=== PATIENT | female | born 1960 | race Caucasian/White ===

== ENCOUNTER → 2016-06-13 | Outpatient (REF) | payer OTHER ==
[~2016-06-13] MED LIST: TRAZ50TA OR; ZOLO50TA OR
[2016-06-13 17:29] LABS: BASO % 0.6 % (0.0-1.0); EOS # 0.2 K/mm3 (0.0-0.50); EOS % 2.9 % (0.0-3.0); LARGE UNSTAINED CELL # 0.3 K/mm3 (0.0-0.4); LARGE UNSTAINED CELL % 2.9 % (0.0-4.0); LYMPH # 2.6 K/mm3 (1.5-4.5); LYMPH % 29.7 % (24.0-44.0); MEAN CORPUSCULAR HEMOGLOBIN 28.9 pg (27.0-33.0); MEAN CORPUSCULAR HGB CONC 33.6 g/dl (32.0-36.5); MEAN CORPUSCULAR VOLUME 86.1 fl (80.0-96.0); MONO # 0.5 K/mm3 (0.0-0.8); MONO % 5.6 % (0.0-5.0); NEUTROPHILS % 58.3 % (36.0-66.0); PLATELET COUNT, AUTOMATED 279 k/mm3 (150-450); RED CELL DISTRIBUTION WIDTH 12.8 % (11.5-14.5); WHITE BLOOD COUNT 8.6 K/mm3 (4.0-10.0)
[2016-06-13 17:31] LABS: ALBUMIN 3.8 GM/DL (3.2-5.2); ALBUMIN/GLOBULIN RATIO 1.03 (1.00-1.93); ALKALINE PHOSPHATASE 108 U/L (45-117); ALT/SGPT 22 U/L (12-78); ANION GAP 10 MEQ/L (8-16); AST/SGOT 23 U/L (15-37); BILIRUBIN,TOTAL 0.4 MG/DL (0.2-1.0); BLOOD UREA NITROGEN 16 MG/DL (7-18); CALCIUM LEVEL 8.8 MG/DL (8.5-10.1); CARBON DIOXIDE LEVEL 28 MEQ/L (21-32); CHLORIDE LEVEL 104 MEQ/L (98-107); CHOLESTEROL LEVEL 195 MG/DL (<200); CREATININE FOR GFR 0.75 MG/DL (0.55-1.02); FERRITIN 47 NG/ML (8-252); GLOMERULAR FILTRATION RATE > 60.0 (>51); GLUCOSE, FASTING 94 MG/DL (70-105); MAGNESIUM LEVEL 1.7 MG/DL (1.8-2.4); PERCENT SATURATION 16.4 % (13.2-37.4); POTASSIUM SERUM 4.4 MEQ/L (3.5-5.1); SODIUM LEVEL 142 MEQ/L (136-145); TOTAL IRON BINDING CAPACITY 342 UG/DL (250-450); TOTAL PROTEIN 7.5 GM/DL (6.4-8.2); TRIGLYCERIDES LEVEL 141 MG/DL (<150)
[2016-06-13 17:35] LABS: FOLATE 18.5 NG/ML (>5.4); VITAMIN B12 LEVEL 833 PG/ML (247-911)
== END ==
LOC: M SFHCCLAY 09:54
PROVIDERS: ATTEND Nurse Practitioner Family
DX: E11.9 Type 2 diabetes mellitus without complications (principal); E78.4 Other hyperlipidemia; E55.9 Vitamin D deficiency, unspecified; Z98.84 Bariatric surgery status

== ENCOUNTER → 2016-10-04 | Outpatient (REF) | payer OTHER ==
[2016-10-04 18:22] LABS: MAGNESIUM LEVEL 1.9 MG/DL (1.8-2.4)
== END ==
LOC: M SFHCCLAY 09:31
PROVIDERS: ATTEND Nurse Practitioner Family
DX: E11.9 Type 2 diabetes mellitus without complications (principal); E78.4 Other hyperlipidemia; Z98.84 Bariatric surgery status; E55.9 Vitamin D deficiency, unspecified

== ENCOUNTER → 2017-02-27 | Outpatient (REF) | payer OTHER | LOC: M SFHCCLAY 09:50 | PROVIDERS: ATTEND Nurse Practitioner Family | DX: E11.9 Type 2 diabetes mellitus without complications (principal); E78.4 Other hyperlipidemia; Z98.84 Bariatric surgery status; E55.9 Vitamin D deficiency, unspecified ==

== ENCOUNTER → 2017-05-08 | Outpatient (REF) | payer OTHER | LOC: M SFHCCLAY 08:59 | PROVIDERS: ATTEND Nurse Practitioner Family | DX: E78.4 Other hyperlipidemia (principal); E11.9 Type 2 diabetes mellitus without complications; E55.9 Vitamin D deficiency, unspecified ==

== ENCOUNTER → 2017-09-04 | Outpatient (REF) | payer OTHER ==
[2017-09-04 18:22] LABS: ALBUMIN/GLOBULIN RATIO 1.08 (1.00-1.93); ALKALINE PHOSPHATASE 96 U/L (45-117); ALT/SGPT 25 U/L (12-78); ANION GAP 7 MEQ/L (8-16); AST/SGOT 27 U/L (7-37); BILIRUBIN,TOTAL 0.3 MG/DL (0.2-1.0); BLOOD UREA NITROGEN 16 MG/DL (7-18); CALCIUM LEVEL 9.4 MG/DL (8.5-10.1); CARBON DIOXIDE LEVEL 28 MEQ/L (21-32); CHLORIDE LEVEL 108 MEQ/L (98-107); CHOLESTEROL LEVEL 215 MG/DL (<200); CHOLESTEROL RISK RATIO 3.706 (<5); CREATININE FOR GFR 0.71 MG/DL (0.55-1.30); ESTIMATED AVERAGE GLUCOSE 151 MG/DL (60-110); FERRITIN 74 NG/ML (8-252); GLOMERULAR FILTRATION RATE > 60.0 (>51); GLUCOSE, FASTING 112 MG/DL (70-100); HDL CHOLESTEROL 58 MG/DL (>40); HEMOGLOBIN A1c 6.9 %; IRON (FE) 77 UG/DL (50-170); LDL CHOLESTEROL 114.6 MG/DL (<100); MAGNESIUM LEVEL 1.8 MG/DL (1.8-2.4); NON-HDL-C 157 MG/DL; PERCENT SATURATION 23.5 % (13.2-45.0); POTASSIUM SERUM 4.6 MEQ/L (3.5-5.1); SODIUM LEVEL 143 MEQ/L (136-145); TOTAL 25(OH) VITAMIN D 53.6 NG/ML (30.0-100.0); TOTAL IRON BINDING CAPACITY 328 UG/DL (250-450); TOTAL PROTEIN 7.7 GM/DL (6.4-8.2); TRIGLYCERIDES LEVEL 212 MG/DL (<150)
[2017-09-04 18:23] LABS: FOLATE 17.9 NG/ML (>5.4); VITAMIN B12 LEVEL 760 PG/ML (247-911)
[2017-09-04 18:38] LABS: HEMATOCRIT 44.2 % (36.0-47.0); HEMOGLOBIN 14.4 g/dl (12.0-15.5); MEAN CORPUSCULAR HEMOGLOBIN 28.4 pg (27.0-33.0); MEAN CORPUSCULAR HGB CONC 32.6 g/dl (32.0-36.5); MEAN CORPUSCULAR VOLUME 87.2 fl (80.0-96.0); PLATELET COUNT, AUTOMATED 285 10^3/uL (150-450); RED BLOOD COUNT 5.07 10^6/uL (4.00-5.40); RED CELL DISTRIBUTION WIDTH 13.4 % (11.5-14.5); WHITE BLOOD COUNT 9.4 10^3/uL (4.0-10.0)
[2017-09-04 19:37] LABS: MALB URINE SIEMENS 8.5 MG/L; MAU/CREAT RATIO 3.7 MCG/MG (0.0-30.0); TOTAL PROTEIN,RANDOM URINE 18.5 MG/DL (0.0-12.0)
== END ==
LOC: M SFHCCLAY 10:44
DX: Z98.84 Bariatric surgery status (principal); E11.9 Type 2 diabetes mellitus without complications; E78.4 Other hyperlipidemia
CPT/HCPCS: 82746

== ENCOUNTER → 2018-04-09 | Outpatient (REF) | payer OTHER ==
[2018-04-09 13:56] LABS: CHOLESTEROL LEVEL 216 MG/DL (<200); CHOLESTEROL RISK RATIO 3.927 (<5); HDL CHOLESTEROL 55 MG/DL (>40); LDL CHOLESTEROL 135 MG/DL (<100); NON-HDL-C 161 MG/DL; TRIGLYCERIDES LEVEL 131 MG/DL (<150)
[2018-04-09 14:08] LABS: TOTAL 25(OH) VITAMIN D 59.8 NG/ML (30.0-100.0)
[2018-04-09 14:23] LABS: ESTIMATED AVERAGE GLUCOSE 157 MG/DL (60-110); HEMOGLOBIN A1c 7.1 %
[2018-04-09 14:43] LABS: MALB URINE SIEMENS 28.9 MG/L; MAU/CREAT RATIO 11.5 MCG/MG (0.0-30.0)
== END ==
LOC: M SFHCCLAY 07:42
DX: E11.9 Type 2 diabetes mellitus without complications (principal); E78.49 Other hyperlipidemia; E55.9 Vitamin D deficiency, unspecified

== ENCOUNTER → 2018-10-04 | Outpatient (REF) | payer BC ==
[2018-10-04 12:37] LABS: BASO # 0.1 10^3/uL (0.0-0.2); BASO % 0.7 % (0.0-1.0); EOS # 0.5 10^3/uL (0.0-0.50); EOS % 4.6 % (0.0-3.0); HEMATOCRIT 43.8 % (36.0-47.0); HEMOGLOBIN 14.3 g/dl (12.0-15.5); LYMPH # 2.9 10^3/uL (1.5-4.5); LYMPH % 28.1 % (24.0-44.0); MEAN CORPUSCULAR HEMOGLOBIN 28.2 pg (27.0-33.0); MEAN CORPUSCULAR HGB CONC 32.6 g/dl (32.0-36.5); MEAN CORPUSCULAR VOLUME 86.4 fl (80.0-96.0); MONO # 0.6 10^3/uL (0.0-0.8); MONO % 5.8 % (0.0-5.0); NEUTROPHILS # 6.1 10^3/uL (1.8-7.7); NEUTROPHILS % 60.3 % (36.0-66.0); PLATELET COUNT, AUTOMATED 284 10^3/uL (150-450); RED BLOOD COUNT 5.07 10^6/uL (4.00-5.40); WHITE BLOOD COUNT 10.1 10^3/uL (4.0-10.0)
[2018-10-04 12:57] LABS: HEMOGLOBIN A1c 7.3 %
[2018-10-04 13:03] LABS: MALB URINE SIEMENS 17.8 MG/L; MAU/CREAT RATIO 7.3 MCG/MG (0.0-30.0)
[2018-10-04 13:19] LABS: ALBUMIN 3.6 GM/DL (3.2-5.2); ALT/SGPT 23 U/L (12-78); BILIRUBIN,TOTAL 0.4 MG/DL (0.2-1.0); BLOOD UREA NITROGEN 14 MG/DL (7-18); CALCIUM LEVEL 8.5 MG/DL (8.5-10.1); CARBON DIOXIDE LEVEL 25 MEQ/L (21-32); CHLORIDE LEVEL 108 MEQ/L (98-107); CHOLESTEROL LEVEL 203 MG/DL (<200); CREATININE FOR GFR 0.63 MG/DL (0.55-1.30); FERRITIN 79 NG/ML (8-252); FOLATE 14.2 NG/ML (>5.4); GLOMERULAR FILTRATION RATE > 60.0 (>51); GLUCOSE, FASTING 110 MG/DL (70-100); HDL CHOLESTEROL 53 MG/DL (>40); IRON (FE) 64 UG/DL (50-170); LDL CHOLESTEROL 130 MG/DL (<100); MAGNESIUM LEVEL 1.9 MG/DL (1.8-2.4); NON-HDL-C 150 MG/DL; PERCENT SATURATION 19.6 % (13.2-45.0); POTASSIUM SERUM 4.9 MEQ/L (3.5-5.1); SODIUM LEVEL 139 MEQ/L (136-145); TOTAL 25(OH) VITAMIN D 76.1 NG/ML (30.0-100.0); TOTAL IRON BINDING CAPACITY 326 UG/DL (250-450); TOTAL PROTEIN 7.5 GM/DL (6.4-8.2); TRIGLYCERIDES LEVEL 99 MG/DL (<150); VITAMIN B12 LEVEL 1444 PG/ML (247-911)
== END ==
LOC: M SFHCCLAY 09:06
PROVIDERS: ATTEND Nurse Practitioner Family
DX: Z98.84 Bariatric surgery status (principal); E78.49 Other hyperlipidemia; E11.9 Type 2 diabetes mellitus without complications

== ENCOUNTER → 2019-01-31 | Outpatient (CLI) | payer BC ==
--- NOTE | 2019-01-31 09:59 | REP ---
MRI of the thoracic spine without contrast Indication: Mid back pain on the right side, strain and neck muscle. Comparison: None Technique: MRI of the thoracic spine was performed utilizing sagittal T1, T2 and STIR imaging and axial T1 and T2-weighted imaging. No intravenous contrast was administered. Findings: There is patient motion artifact sac which degrades image quality and decreases the sensitivity for detection of small lesions. Within this limitation, there is no gross signal abnormality within the visualized spinal cord. There is normal alignment of the thoracic spine. There is levoscoliotic curvature of the thoracolumbar spine. There are multilevel disc bulges within the mid to lower thoracic spine. At T7-T8, there is a small left paracentral disc protrusion. At T8-T9, there is a small central/right paracentral disc protrusion. At T11-T12, there is a small left paracentral disc protrusion. There is no significant spinal canal stenosis. Vertebral body heights and intervertebral disc spaces are maintained. Note is made degenerative edema at the T12-L1 endplates. There is endplate irregularity along the superior endplate of T12 anteriorly. There is no suspicious focal marrow signal abnormality. There is a subcentimeter T2 hyperintensity within the left kidney which could represent a cyst. The posterior paraspinal soft tissues are within normal limits. Impression: Multilevel thoracic spondylosis with multilevel small disc protrusions within the mid to lower thoracic spine. No significant spinal canal stenosis. Electronically Signed by Shanel Ibarra MD 01/31/2019 09:51 A
--- NOTE | 2019-01-31 10:14 | REP ---
MRI of the cervical spine without contrast Indication: Mid back pain on the right side, strain of neck muscle. Comparison: None Technique: MRI of the cervical spine was performed utilizing sagittal T1, STIR and T2-weighted imaging as well as axial T1 and T2-weighted imaging. No intravenous contrast was administered. Findings: There is loss of cervical lordosis with mild kyphosis. There are multilevel degenerative changes, most notably at C4-C7 with loss of disc height, disc desiccation. There is degenerative endplate marrow edema at C4-C5. The visualized spinal cord is normal in signal intensity. The paraspinal soft tissues are within normal limits. Level specific observations: C2-C3: No significant spinal canal stenosis or neural foraminal narrowing. C3-C4: Diffuse disc bulge. Left uncovertebral joint hypertrophy. Mild left neural foraminal narrowing. C4-C5: Disc osteophyte complex. Bilateral uncovertebral joint hypertrophy, greater on the left. Moderate narrowing of the spinal canal. Moderate bilateral neural foraminal narrowing. C5-C6: Disc osteophyte complex. Bilateral uncovertebral joint hypertrophy, greater on the left. Moderate narrowing of the spinal canal. Moderate bilateral neural foraminal narrowing, greater on the left. C6-C7: Disc osteophyte complex. Bilateral uncovertebral joint hypertrophy, greater on the left. Mild spinal canal narrowing. Moderate bilateral neural foraminal narrowing, greater on the left. C7-T1: No significant spinal canal stenosis or neural foraminal narrowing. Impression: Loss of cervical lordosis. Multilevel cervical spondylosis, most notably at C4-C5 and C5-C6 with moderate narrowing of the spinal canal and neural foramina. Mild narrowing of the spinal canal and moderate neural foraminal narrowing at C6-C7. Electronically Signed by Shanel Ibarra MD 01/31/2019 10:05 A
== END ==
LOC: M RAD 06:32
PROVIDERS: ATTEND Nurse Practitioner Family
DX: M54.5 Low back pain (principal); S16.1XXA Strain of muscle, fascia and tendon at neck level, initial encounter

== ENCOUNTER → 2019-04-04 | Outpatient (REF) | payer BC ==
[2019-04-04 12:44] LABS: CHOLESTEROL RISK RATIO 3.812 (<5); FREE THYROXINE INDEX 2.9 % (1.3-4.8); THYROID STIMULATING HORMONE 2.93 uIU/ML (0.358-3.740); THYROXINE (T4) 8.9 UG/DL (4.5-12.0)
[2019-04-04 14:33] LABS: HEMOGLOBIN A1c 7.1 %
== END ==
LOC: M SFHCCLAY 07:15
PROVIDERS: ATTEND Nurse Practitioner Family
DX: E11.9 Type 2 diabetes mellitus without complications (principal); I10 Essential (primary) hypertension; R53.83 Other fatigue; Z98.84 Bariatric surgery status

== ENCOUNTER → 2019-07-01 | Outpatient (REF) | payer BC ==
[2019-07-01 19:20] LABS: HEMOGLOBIN A1c 7.2 %
[2019-07-01 19:23] LABS: CHOLESTEROL RISK RATIO 3.907 (<5); TOTAL 25(OH) VITAMIN D 60.3 NG/ML (30.0-100.0)
[2019-07-01 19:42] LABS: MALB URINE SIEMENS 10.2 MG/L; MAU/CREAT RATIO 6.5 MCG/MG (0.0-30.0)
== END ==
LOC: M SFHCCLAY 09:40
PROVIDERS: ATTEND Nurse Practitioner Family
DX: E11.9 Type 2 diabetes mellitus without complications (principal); E78.49 Other hyperlipidemia; E55.9 Vitamin D deficiency, unspecified

== ENCOUNTER → 2019-10-01 | Outpatient (REF) | payer BC ==
[2019-10-01 11:21] LABS: BASO # 0.1 10^3/uL (0.0-0.2); BASO % 0.7 % (0.0-1.0); EOS # 0.4 10^3/uL (0.0-0.5); HEMATOCRIT 41.1 % (36.0-47.0); HEMOGLOBIN 13.3 g/dl (12.0-15.5); MEAN CORPUSCULAR HEMOGLOBIN 28.5 pg (27.0-33.0); MEAN CORPUSCULAR HGB CONC 32.4 g/dl (32.0-36.5); MEAN CORPUSCULAR VOLUME 88.2 fl (80.0-96.0); MONO # 0.7 10^3/uL (0.0-0.8); MONO % 7.2 % (0.0-5.0); NEUTROPHILS # 4.9 10^3/uL (1.5-8.5); NEUTROPHILS % 54.7 % (36.0-66.0); PLATELET COUNT, AUTOMATED 258 10^3/uL (150-450); RED BLOOD COUNT 4.66 10^6/uL (4.00-5.40)
[2019-10-01 11:29] LABS: ALBUMIN 3.6 GM/DL (3.2-5.2); ALT/SGPT 21 U/L (12-78); BILIRUBIN,TOTAL 0.3 MG/DL (0.2-1.0); BLOOD UREA NITROGEN 16 MG/DL (7-18); CALCIUM LEVEL 8.9 MG/DL (8.5-10.1); CARBON DIOXIDE LEVEL 24 MEQ/L (21-32); CHLORIDE LEVEL 108 MEQ/L (98-107); CHOLESTEROL LEVEL 208 MG/DL (<200); CHOLESTEROL RISK RATIO 3.924 (<5); CREATININE FOR GFR 0.83 MG/DL (0.55-1.30); FERRITIN 32 NG/ML (8-252); GLOMERULAR FILTRATION RATE > 60.0 (>51); GLUCOSE, FASTING 125 MG/DL (70-100); HDL CHOLESTEROL 53 MG/DL (>40); IRON (FE) 74 UG/DL (50-170); LDL CHOLESTEROL 131 MG/DL (<100); NON-HDL-C 155 MG/DL; PERCENT SATURATION 21.1 % (13.2-45.0); POTASSIUM SERUM 4.4 MEQ/L (3.5-5.1); SODIUM LEVEL 140 MEQ/L (136-145); TOTAL IRON BINDING CAPACITY 351 UG/DL (250-450); TOTAL PROTEIN 7.2 GM/DL (6.4-8.2); TRIGLYCERIDES LEVEL 120 MG/DL (<150)
[2019-10-01 11:36] LABS: FOLATE 22.6 NG/ML (>5.4); VITAMIN B12 LEVEL 1888 PG/ML (247-911)
[2019-10-01 11:50] LABS: HEMOGLOBIN A1c 7.9 %
[2019-10-01 12:16] LABS: MALB URINE SIEMENS 5.8 MG/L; MAU/CREAT RATIO 3.3 MCG/MG (0.0-30.0)
== END ==
LOC: M SFHCCLAY 08:41
PROVIDERS: ATTEND Nurse Practitioner Family
DX: E11.9 Type 2 diabetes mellitus without complications (principal); E78.5 Hyperlipidemia, unspecified; Z98.84 Bariatric surgery status

== ENCOUNTER → 2020-02-13 | Outpatient (CLI) | payer BC ==
--- NOTE | 2020-02-27 20:07 | REP ---
RIGHT HIP SERIES: CLINICAL: Right hip pain. TECHNIQUE: Neutral and frog lateral views of the right hip. FINDINGS: Advanced osteoarthritic degenerative changes are appreciated including increased sclerosis along the acetabulum with marginal osteophytosis and joint space narrowing. Osteophyte formation along the femoral head is also identified. There is no evidence for acute fracture or dislocation. IMPRESSION: Early advanced osteoarthritic degenerative changes of the right hip. MTDD
== END ==
LOC: M CLY 11:21
PROVIDERS: ATTEND Physician Assistant
DX: M54.5 Low back pain (principal); M16.11 Unilateral primary osteoarthritis, right hip

== ENCOUNTER → 2020-02-14 | Outpatient (REF) | payer BC ==
[2020-02-14 14:35] LABS: HEMATOCRIT 40.9 % (36.0-47.0); MEAN CORPUSCULAR HGB CONC 31.8 g/dl (32.0-36.5); PLATELET COUNT, AUTOMATED 259 10^3/uL (150-450); RED BLOOD COUNT 4.65 10^6/uL (4.00-5.40); WHITE BLOOD COUNT 8.2 10^3/uL (4.0-10.0)
[2020-02-14 15:13] LABS: HEMOGLOBIN A1c 7.2 %
[2020-02-14 15:41] LABS: ALBUMIN 3.9 GM/DL (3.2-5.2); ALT/SGPT 21 U/L (12-78); BILIRUBIN,TOTAL 0.3 MG/DL (0.2-1.0); BLOOD UREA NITROGEN 14 MG/DL (7-18); CALCIUM LEVEL 8.1 MG/DL (8.5-10.1); CARBON DIOXIDE LEVEL 27 MEQ/L (21-32); CHLORIDE LEVEL 107 MEQ/L (98-107); CHOLESTEROL LEVEL 222 MG/DL (<200); CHOLESTEROL RISK RATIO 3.762 (<5); GLOMERULAR FILTRATION RATE > 60.0 (>51); GLUCOSE, FASTING 140 MG/DL (70-100); HDL CHOLESTEROL 59 MG/DL (>40); LDL CHOLESTEROL 136 MG/DL (<100); NON-HDL-C 163 MG/DL; POTASSIUM SERUM 4.8 MEQ/L (3.5-5.1); SODIUM LEVEL 139 MEQ/L (136-145); TOTAL 25(OH) VITAMIN D 69.7 NG/ML (30.0-100.0); TOTAL PROTEIN 7.1 GM/DL (6.4-8.2); TRIGLYCERIDES LEVEL 137 MG/DL (<150)
== END ==
LOC: M LABDRAWC 11:54 → M SFHCCLAY 11:54
PROVIDERS: ATTEND Nurse Practitioner Family
DX: E11.9 Type 2 diabetes mellitus without complications (principal); I10 Essential (primary) hypertension; E78.5 Hyperlipidemia, unspecified; E55.9 Vitamin D deficiency, unspecified; F32.9 Major depressive disorder, single episode, unspecified

== ENCOUNTER → 2020-04-07 | Outpatient (REF) | payer BC ==
[2020-04-08 21:06] LABS: ANA (HEP2) Negative (.); Lyme Disease IgG/IgM Antibodie <0.91 ISR (0.00-0.90); Lyme Disease IgM Ab Quantitati <0.80 index (0.00-0.79)
== END ==
LOC: M SFHCCLAY 08:29
PROVIDERS: ATTEND Nurse Practitioner Family
DX: M54.9 Dorsalgia, unspecified (principal)

== ENCOUNTER → 2020-06-08 | Outpatient (REF) | payer BC ==
[2020-06-08 12:15] LABS: CHOLESTEROL RISK RATIO 3.736 (<5); TOTAL 25(OH) VITAMIN D 70.7 NG/ML (30.0-100.0)
== END ==
LOC: M SFHCCLAY 08:25
PROVIDERS: ATTEND Nurse Practitioner Family
DX: E11.9 Type 2 diabetes mellitus without complications (principal); E78.5 Hyperlipidemia, unspecified; E55.9 Vitamin D deficiency, unspecified

== ENCOUNTER → 2020-09-08 | Outpatient (REF) | payer BC ==
[2020-09-08 11:20] LABS: PLATELET COUNT, AUTOMATED 265 10^3/uL (150-450)
[2020-09-08 11:32] LABS: INR 0.93; PARTIAL THROMBOPLASTIN TIME 27.6 SECONDS (24.2-38.5); PROTHROMBIN TIME 12.6 SECONDS (12.5-14.3)
== END ==
LOC: M LABDRAWC 11:02
PROVIDERS: ATTEND Physician Assistant
DX: M47.817 Spondylosis without myelopathy or radiculopathy, lumbosacral region (principal)

== ENCOUNTER → 2020-11-11 | Outpatient (CLI) | payer BC ==
--- NOTE | 2020-11-12 11:05 | REP ---
INDICATION: RT HIP OA ? TROCHANTERIC BURSITIS injury September 2019 in December 2019, pain COMPARISON: None. TECHNIQUE: Coronal T1, STIR through the pelvis, axial, coronal, sagittal T2 fat sat right hip. FINDINGS: There is moderate marrow edema in the superior aspect of the right femoral head, as well as in the adjacent right acetabulum. There is fairly severe chondromalacia diffusely at the hip joint. The labrum is diffusely torn. There is a small joint effusion. There is mild ill-defined high signal in the soft tissue structures adjacent to the greater trochanters bilaterally compatible with mild greater trochanteric tendonobursitis. Other surrounding soft tissue structures are unremarkable. The visualized intrapelvic structures are unremarkable. IMPRESSION: Severe arthritic changes right hip with subchondral marrow edema on both sides of the joint. Small joint effusion. Diffuse labral tear. There are findings compatible with mild greater trochanteric tendonobursitis. <Electronically signed by Catalino Tejeda > 11/12/20 [id number]
== END ==
LOC: M RAD 17:44
PROVIDERS: ATTEND Physical Medicine & Rehabilitation
DX: M16.11 Unilateral primary osteoarthritis, right hip (principal)

== ENCOUNTER → 2020-12-03 | Outpatient (REF) | payer BC ==
[2020-12-03 12:18] LABS: BASO # 0.1 10^3/uL (0.0-0.2); BASO % 0.7 % (0.0-1.0); EOS # 0.4 10^3/uL (0.0-0.5); EOS % 4.6 % (0.0-3.0); HEMATOCRIT 40.1 % (36.0-47.0); HEMOGLOBIN 12.7 g/dl (12.0-15.5); LYMPH # 2.3 10^3/uL (1.5-5.0); LYMPH % 27.4 % (24.0-44.0); MEAN CORPUSCULAR HEMOGLOBIN 27.8 pg (27.0-33.0); MEAN CORPUSCULAR HGB CONC 31.7 g/dl (32.0-36.5); MEAN CORPUSCULAR VOLUME 87.7 fl (80.0-96.0); MONO # 0.7 10^3/uL (0.0-0.8); MONO % 7.8 % (2.0-8.0); NEUTROPHILS # 4.9 10^3/uL (1.5-8.5); PLATELET COUNT, AUTOMATED 266 10^3/uL (150-450); RED BLOOD COUNT 4.57 10^6/uL (4.00-5.40); WHITE BLOOD COUNT 8.3 10^3/uL (4.0-10.0)
[2020-12-03 12:47] LABS: HEMOGLOBIN A1c 7.4 %
[2020-12-03 12:49] LABS: CREATININE, URINE 85.9 MG/DL; MALB URINE SIEMENS < 5.0 MG/L; MAU/CREAT RATIO 5.8 MCG/MG (0.0-30.0)
[2020-12-03 12:50] LABS: ALBUMIN 3.6 GM/DL (3.2-5.2); ALT/SGPT 19 U/L (12-78); BILIRUBIN,TOTAL 0.4 MG/DL (0.2-1.0); BLOOD UREA NITROGEN 14 MG/DL (7-18); CALCIUM LEVEL 8.7 MG/DL (8.5-10.1); CARBON DIOXIDE LEVEL 28 MEQ/L (21-32); CHLORIDE LEVEL 105 MEQ/L (98-107); CHOLESTEROL LEVEL 182 MG/DL (<200); CREATININE FOR GFR 0.69 MG/DL (0.55-1.30); FREE T4 1.11 NG/DL (0.76-1.46); GLOMERULAR FILTRATION RATE > 60.0 (>51); GLUCOSE, FASTING 145 MG/DL (70-100); HDL CHOLESTEROL 56 MG/DL (>40); IRON (FE) 77 UG/DL (50-170); LDL CHOLESTEROL 101 MG/DL (<100); NON-HDL-C 126 MG/DL; PERCENT SATURATION 22.3 % (13.2-45.0); POTASSIUM SERUM 4.7 MEQ/L (3.5-5.1); SODIUM LEVEL 138 MEQ/L (136-145); TOTAL 25(OH) VITAMIN D 79.5 NG/ML (30.0-100.0); TOTAL IRON BINDING CAPACITY 346 UG/DL (250-450); TOTAL PROTEIN 6.9 GM/DL (6.4-8.2); TRIGLYCERIDES LEVEL 126 MG/DL (<150); VITAMIN B12 LEVEL 534 PG/ML (247-911)
== END ==
LOC: M SFHCCLAY 08:08
PROVIDERS: ATTEND Nurse Practitioner Family
DX: E11.8 Type 2 diabetes mellitus with unspecified complications (principal); I10 Essential (primary) hypertension; E78.5 Hyperlipidemia, unspecified; Z98.84 Bariatric surgery status; F32.9 Major depressive disorder, single episode, unspecified; Z78.0 Asymptomatic menopausal state

== ENCOUNTER → 2020-12-03 | Outpatient (REF) | payer BC ==
[2020-12-03 11:40] LABS: PLATELET COUNT, AUTOMATED 268 10^3/uL (150-450)
[2020-12-03 12:02] LABS: INR 0.94; PARTIAL THROMBOPLASTIN TIME 26.5 SECONDS (24.2-38.5); PROTHROMBIN TIME 12.8 SECONDS (12.5-14.3)
== END ==
LOC: M LABDRAWC 11:30
PROVIDERS: ATTEND Physician Assistant
DX: M47.817 Spondylosis without myelopathy or radiculopathy, lumbosacral region (principal)

== ENCOUNTER → 2020-12-16 | Outpatient (CLI) | payer BC ==
[~2020-12-16] MED LIST changes: +ISOVUE-300 61% 50ML VIAL As Ordered ONE; +LIDOCAINE 1% MDV 20ML VIAL As Ordered ONE; +TRIAMCINOLONE ACETONIDE SUSP 40 MG/ML VIAL (J3301) As Ordered ONE
--- NOTE | 2020-12-16 16:26 | REP ---
INDICATION: OSTEOARTHRITIS OF RIGHT HIP. COMPARISON: None TECHNIQUE: The procedure was performed by GENA Shannon, under the direct supervision of Dr. Aldridge. The benefits and risks of the procedure were explained to the patient, and an informed consent was obtained. Directly prior to the start of the procedure, a formal time-out was completed in the procedure room. The right femoral neck joint space was localized using fluoroscopic guidance. The skin was prepped and draped in a sterile fashion. Approximately 5 mL of 1% Lidocaine 10 mg/ml was used as a local anesthetic. Using fluoroscopic guidance, a #22 gauge spinal needle was inserted and advanced into the right femoral neck joint space. Approximately 1 mL of Isovue 300 was injected to verify placement. Five mL of a solution containing 3 mL 1% lidocaine 10 mg/ml and 2 mL Kenalog 40 milligrams/milliliter was injected into the joint space. The needle was removed and hemostasis was achieved. FINDINGS: The patient tolerated the procedure well and there were no immediate complications. IMPRESSION: 1. Fluoroscopically guided right hip intra-articular pain injection. 0.1 minutes of fluoroscopy time was utilized for this procedure. Some fluoroscopic images are performed with last image hold technology. These images require no additional radiation. <Electronically signed by Jasmyn Maldonado > 12/16/20 1611 <Electronically signed by Rodney Aldridge > 12/16/20 1629
== END ==
LOC: M RADPRO 13:03
PROVIDERS: ATTEND Physical Medicine & Rehabilitation
DX: M16.11 Unilateral primary osteoarthritis, right hip (principal)
CPT/HCPCS: 20610; 77002; J3301; Q9967

== ENCOUNTER → 2021-07-27 | Outpatient (REF) | payer BC ==
[~2021-07-27] MED LIST changes: -ISOVUE-300 61% 50ML VIAL As Ordered ONE; -LIDOCAINE 1% MDV 20ML VIAL As Ordered ONE; -TRIAMCINOLONE ACETONIDE SUSP 40 MG/ML VIAL (J3301) As Ordered ONE
[2021-07-27 12:33] LABS: HEMOGLOBIN A1c 6.9 %
[2021-07-27 12:40] LABS: ALBUMIN 3.7 GM/DL (3.2-5.2); ALT/SGPT 18 U/L (12-78); BILIRUBIN,TOTAL 0.5 MG/DL (0.2-1.0); BLOOD UREA NITROGEN 17 MG/DL (7-18); CALCIUM LEVEL 9.1 MG/DL (8.5-10.1); CARBON DIOXIDE LEVEL 26 MEQ/L (21-32); CHLORIDE LEVEL 108 MEQ/L (98-107); CREATININE FOR GFR 0.73 MG/DL (0.55-1.30); GLOMERULAR FILTRATION RATE > 60.0 (>51); GLUCOSE, FASTING 139 MG/DL (70-100); POTASSIUM SERUM 4.8 MEQ/L (3.5-5.1); SODIUM LEVEL 139 MEQ/L (136-145); TOTAL PROTEIN 6.9 GM/DL (6.4-8.2)
[2021-07-27 12:43] LABS: TOTAL 25(OH) VITAMIN D 85.7 NG/ML (30.0-100.0)
== END ==
LOC: M SFHCCLAY 07:39
PROVIDERS: ATTEND Nurse Practitioner Family
DX: I10 Essential (primary) hypertension (principal); Z98.84 Bariatric surgery status; E11.9 Type 2 diabetes mellitus without complications; E55.9 Vitamin D deficiency, unspecified; E78.5 Hyperlipidemia, unspecified

== ENCOUNTER → 2021-10-12 | Outpatient (REF) | payer BC | LOC: M SFHCCLAY 08:16 | PROVIDERS: ATTEND Nurse Practitioner Family | DX: Z01.419 Encounter for gynecological examination (general) (routine) without abnormal findings (principal) ==

== ENCOUNTER → 2021-12-08 | Outpatient (REF) | payer BC ==
[2021-12-08 18:19] LABS: HEMOGLOBIN A1c 5.9 %
[2021-12-08 18:35] LABS: ALBUMIN 3.7 GM/DL (3.2-5.2); ALT/SGPT 17 U/L (12-78); BILIRUBIN,TOTAL 0.4 MG/DL (0.2-1.0); BLOOD UREA NITROGEN 15 MG/DL (7-18); CALCIUM LEVEL 9.6 MG/DL (8.5-10.1); CARBON DIOXIDE LEVEL 28 MEQ/L (21-32); CHLORIDE LEVEL 105 MEQ/L (98-107); CREATININE FOR GFR 0.67 MG/DL (0.55-1.30); GLOMERULAR FILTRATION RATE > 60.0 (>51); GLUCOSE, FASTING 86 MG/DL (70-100); POTASSIUM SERUM 4.7 MEQ/L (3.5-5.1); SODIUM LEVEL 138 MEQ/L (136-145); TOTAL PROTEIN 6.8 GM/DL (6.4-8.2)
== END ==
LOC: M SFHCCLAY 14:36
PROVIDERS: ATTEND Nurse Practitioner Family
DX: E11.8 Type 2 diabetes mellitus with unspecified complications (principal)

== ENCOUNTER → 2022-01-12 | Outpatient (CLI) | payer BC | LOC: M LABSMTC 11:20 | PROVIDERS: ATTEND Physician Assistant | DX: Z11.52 Encounter for screening for COVID-19 (principal) ==

== ENCOUNTER → 2022-03-16 | Outpatient (REF) | payer BC | LOC: M SFHCCLAY 14:18 | PROVIDERS: ATTEND Nurse Practitioner Family | DX: R42 Dizziness and giddiness (principal) ==

== ENCOUNTER → 2022-03-18 | Outpatient (REF) | payer BC ==
[2022-03-18 11:31] LABS: BASO # 0.1 10^3/uL (0.0-0.2); BASO % 0.6 % (0.0-1.0); EOS # 0.3 10^3/uL (0.0-0.5); EOS % 3.9 % (0.0-3.0); HEMATOCRIT 35.6 % (36.0-47.0); HEMOGLOBIN 10.9 g/dl (12.0-15.5); LYMPH # 2.3 10^3/uL (1.5-5.0); LYMPH % 28.2 % (24.0-44.0); MEAN CORPUSCULAR HEMOGLOBIN 26.4 pg (27.0-33.0); MEAN CORPUSCULAR HGB CONC 30.6 g/dl (32.0-36.5); MEAN CORPUSCULAR VOLUME 86.2 fl (80.0-96.0); MONO # 0.7 10^3/uL (0.0-0.8); MONO % 8.3 % (2.0-8.0); NEUTROPHILS # 4.9 10^3/uL (1.5-8.5); NEUTROPHILS % 58.8 % (36.0-66.0); PLATELET COUNT, AUTOMATED 313 10^3/uL (150-450); RED BLOOD COUNT 4.13 10^6/uL (4.00-5.40); WHITE BLOOD COUNT 8.3 10^3/uL (4.0-10.0)
[2022-03-18 12:40] LABS: ALBUMIN 3.4 GM/DL (3.2-5.2); ALT/SGPT 12 U/L (12-78); BILIRUBIN,TOTAL 0.3 MG/DL (0.2-1.0); BLOOD UREA NITROGEN 16 MG/DL (7-18); CARBON DIOXIDE LEVEL 27 MEQ/L (21-32); CHLORIDE LEVEL 104 MEQ/L (98-107); CREATININE FOR GFR 0.81 MG/DL (0.55-1.30); GLOMERULAR FILTRATION RATE > 60.0 (>51); GLUCOSE, FASTING 103 MG/DL (70-100); POTASSIUM SERUM 4.7 MEQ/L (3.5-5.1); SODIUM LEVEL 138 MEQ/L (136-145); TOTAL PROTEIN 6.6 GM/DL (6.4-8.2)
== END ==
LOC: M SFHCCLAY 07:36
PROVIDERS: ATTEND Nurse Practitioner Family
DX: E11.8 Type 2 diabetes mellitus with unspecified complications (principal)

== ENCOUNTER → 2022-05-12 | Outpatient (REF) | payer BC ==
[2022-05-12 18:26] LABS: BASO # 0.1 10^3/uL (0.0-0.2); BASO % 0.8 % (0.0-1.0); EOS # 0.2 10^3/uL (0.0-0.5); EOS % 2.7 % (0.0-3.0); HEMATOCRIT 40.8 % (36.0-47.0); HEMOGLOBIN 12.4 g/dl (12.0-15.5); LYMPH % 25.4 % (24.0-44.0); MEAN CORPUSCULAR HEMOGLOBIN 25.4 pg (27.0-33.0); MEAN CORPUSCULAR HGB CONC 30.4 g/dl (32.0-36.5); MEAN CORPUSCULAR VOLUME 83.4 fl (80.0-96.0); MONO # 0.6 10^3/uL (0.0-0.8); MONO % 7.5 % (2.0-8.0); NEUTROPHILS % 63.3 % (36.0-66.0); PLATELET COUNT, AUTOMATED 335 10^3/uL (150-450); RED BLOOD COUNT 4.89 10^6/uL (4.00-5.40); WHITE BLOOD COUNT 7.9 10^3/uL (4.0-10.0)
[2022-05-12 19:01] LABS: MAGNESIUM LEVEL 1.5 MG/DL (1.8-2.4)
[2022-05-12 19:03] LABS: ALBUMIN 3.6 G/DL (3.2-5.2); ALKALINE PHOSPHATASE 75 U/L (46-116); ALT/SGPT 11 U/L (7.0-40); AST/SGOT 21 U/L (<34); BILIRUBIN,TOTAL 0.3 MG/DL (0.3-1.2); BLOOD UREA NITROGEN 14 MG/DL (9-23); CALCIUM LEVEL 9.4 MG/DL (8.5-10.1); CARBON DIOXIDE LEVEL 26 MMOL/L (20-31); CHLORIDE LEVEL 104 MMOL/L (98-107); CREATININE FOR GFR 0.72 MG/DL (0.55-1.30); FREE T4 0.98 NG/DL (0.89-1.76); GLOMERULAR FILTRATION RATE > 60.0 (>51); GLUCOSE, FASTING 78 MG/DL (60-100); POTASSIUM SERUM 5.4 MMOL/L (3.5-5.1); SODIUM LEVEL 140 MMOL/L (136-145); THYROID STIMULATING HORMONE 2.155 uIU/ML (0.55-4.78); TOTAL 25(OH) VITAMIN D 125.9 NG/ML (20.0-100.0); TOTAL PROTEIN 6.8 G/DL (5.7-8.2)
[2022-05-12 21:37] LABS: HEMOGLOBIN A1c 5.6 % (4.0-6.0)
== END ==
LOC: M SFHCCLAY 11:17
PROVIDERS: ATTEND Nurse Practitioner Family
DX: E11.8 Type 2 diabetes mellitus with unspecified complications (principal); I48.0 Paroxysmal atrial fibrillation; I10 Essential (primary) hypertension; E78.5 Hyperlipidemia, unspecified; F32.9 Major depressive disorder, single episode, unspecified; Z78.0 Asymptomatic menopausal state; Z98.84 Bariatric surgery status

== ENCOUNTER → 2022-06-08 | Outpatient (REF) | payer BC ==
[2022-06-08 18:52] LABS: MAGNESIUM LEVEL 1.6 MG/DL (1.8-2.4)
[2022-06-08 18:53] LABS: BLOOD UREA NITROGEN 13 MG/DL (9-23); CALCIUM LEVEL 9.3 MG/DL (8.5-10.1); CARBON DIOXIDE LEVEL 27 MMOL/L (20-31); CHLORIDE LEVEL 103 MMOL/L (98-107); CREATININE FOR GFR 0.67 MG/DL (0.55-1.30); GLOMERULAR FILTRATION RATE > 60.0 (>51); GLUCOSE, FASTING 96 MG/DL (60-100); SODIUM LEVEL 141 MMOL/L (136-145)
== END ==
LOC: M SFHCCLAY 09:28
PROVIDERS: ATTEND Nurse Practitioner Family
DX: E83.42 Hypomagnesemia (principal)

== ENCOUNTER → 2022-06-27 | Outpatient (REF) | payer BC ==
[2022-06-27 13:12] LABS: HEMOGLOBIN A1c 5.4 % (4.0-6.0)
[2022-06-27 13:24] LABS: MAGNESIUM LEVEL 1.7 MG/DL (1.8-2.4)
[2022-06-27 13:27] LABS: ALBUMIN 3.8 G/DL (3.2-5.2); ALKALINE PHOSPHATASE 74 U/L (46-116); ALT/SGPT 10 U/L (7.0-40); AST/SGOT 25 U/L (<34); BILIRUBIN,TOTAL 0.3 MG/DL (0.3-1.2); BLOOD UREA NITROGEN 15 MG/DL (9-23); CALCIUM LEVEL 9.6 MG/DL (8.5-10.1); CARBON DIOXIDE LEVEL 26 MMOL/L (20-31); CHLORIDE LEVEL 104 MMOL/L (98-107); CREATININE FOR GFR 0.72 MG/DL (0.55-1.30); GLOMERULAR FILTRATION RATE > 60.0 (>51); GLUCOSE, FASTING 87 MG/DL (60-100); POTASSIUM SERUM 4.8 MMOL/L (3.5-5.1); SODIUM LEVEL 140 MMOL/L (136-145); TOTAL PROTEIN 6.7 G/DL (5.7-8.2)
== END ==
LOC: M SFHCCLAY 07:56
PROVIDERS: ATTEND Nurse Practitioner Family
DX: E83.42 Hypomagnesemia (principal); E11.8 Type 2 diabetes mellitus with unspecified complications

== ENCOUNTER → 2022-09-21 | Outpatient (REF) | payer BC | LOC: M SFHCCLAY 14:34 | PROVIDERS: ATTEND Nurse Practitioner Family | DX: Z01.419 Encounter for gynecological examination (general) (routine) without abnormal findings (principal) ==

== ENCOUNTER → 2022-11-24 | Outpatient (REF) | payer BC, MEDICARE ==
[2022-11-24 17:42] LABS: BASO # 0.1 10^3/uL (0.0-0.2); BASO % 0.6 % (0.0-1.0); EOS # 0.2 10^3/uL (0.0-0.5); HEMATOCRIT 37.9 % (36.0-47.0); HEMOGLOBIN 12.3 g/dl (12.0-15.5); LYMPH # 2.4 10^3/uL (1.5-5.0); LYMPH % 27.5 % (24.0-44.0); MEAN CORPUSCULAR HEMOGLOBIN 27.5 pg (27.0-33.0); MEAN CORPUSCULAR HGB CONC 32.5 g/dl (32.0-36.5); MEAN CORPUSCULAR VOLUME 84.8 fl (80.0-96.0); MONO # 0.7 10^3/uL (0.0-0.8); NEUTROPHILS # 5.5 10^3/uL (1.5-8.5); NEUTROPHILS % 61.7 % (36.0-66.0); PLATELET COUNT, AUTOMATED 319 10^3/uL (150-450); RED BLOOD COUNT 4.47 10^6/uL (4.00-5.40); WHITE BLOOD COUNT 8.9 10^3/uL (4.0-10.0)
[2022-11-24 17:50] LABS: HEMOGLOBIN A1c 5.2 % (4.0-6.0)
[2022-11-24 18:07] LABS: ALKALINE PHOSPHATASE 71 U/L (46-116); ALT/SGPT 13 U/L (7.0-40); AST/SGOT 22 U/L (<34); BILIRUBIN,TOTAL 0.3 MG/DL (0.3-1.2); BLOOD UREA NITROGEN 15 MG/DL (9-23); CALCIUM LEVEL 10.4 MG/DL (8.3-10.6); CARBON DIOXIDE LEVEL 26 MMOL/L (20-31); CHLORIDE LEVEL 104 MMOL/L (98-107); CREATININE FOR GFR 0.71 MG/DL (0.55-1.30); GLOMERULAR FILTRATION RATE > 60.0 (>45); GLUCOSE, FASTING 81 MG/DL (74-106); MAGNESIUM LEVEL 1.7 MG/DL (1.8-2.4); SODIUM LEVEL 139 MMOL/L (136-145)
[2022-11-24 18:08] LABS: THYROID STIMULATING HORMONE 2.854 uIU/ML (0.55-4.78); TOTAL 25(OH) VITAMIN D 137.3 NG/ML (20.0-100.0)
[2022-11-24 18:09] LABS: FREE T4 1.06 NG/DL (0.89-1.76)
== END ==
LOC: M SFHCCLAY 12:05
PROVIDERS: ATTEND Nurse Practitioner Family
DX: E11.8 Type 2 diabetes mellitus with unspecified complications (principal); E83.42 Hypomagnesemia; I48.0 Paroxysmal atrial fibrillation; I10 Essential (primary) hypertension; E78.5 Hyperlipidemia, unspecified; F32.9 Major depressive disorder, single episode, unspecified; Z78.0 Asymptomatic menopausal state; Z98.84 Bariatric surgery status

== ENCOUNTER 2023-01-18 08:14 | Day surgery (SDC) | payer BC ==
[~2023-01-18] VITALS: Ht 162.6 cm; Wt 89.4 kg
[~2023-01-18 08:14] MED LIST changes: +ACET1TAB37 PO; +BAYE81TA10 PO; +BISO10TA14 PO; +BUSP15TA47 PO; +DILT120C31 PO; +ERGO500029 PO; +FERR324T21 PO; +METF500T13 PO; +NS 1,000 ML IV ONE; +PRAV40TA2 PO; +RA N1TAB PO; +SEMA2PEN SC; +TIZA10TA PO; +TRAZ-252 PO; +VIAC1CHW PO; +VITA500C24 PO; +XARE20TA PO; +ZOLO100T PO
[2023-01-18] MEDS ORDERED: propofoL 200 MG/20 ML VIAL As Ordered ONE (10:04)
[2023-01-18 11:08] VITALS: BP 123/75; TEMP 96.3; O2SAT 97
== END 2023-01-18 11:11 | disposition home or self-care (01) ==
LOC: M OPP 08:14
PROVIDERS: ATTEND Internal Medicine Gastroenterology
DX: Z12.11 Encounter for screening for malignant neoplasm of colon (principal); Z86.010 Personal history of colon polyps; K64.0 First degree hemorrhoids; K57.30 Diverticulosis of large intestine without perforation or abscess without bleeding; Z79.01 Long term (current) use of anticoagulants; Z79.02 Long term (current) use of antithrombotics/antiplatelets; Z79.1 Long term (current) use of non-steroidal anti-inflammatories (NSAID); Z79.82 Long term (current) use of aspirin; Z79.899 Other long term (current) drug therapy; Z88.0 Allergy status to penicillin; Z81.1 Family history of alcohol abuse and dependence; Z88.8 Allergy status to other drugs, medicaments and biological substances

== ENCOUNTER → 2023-02-24 | Outpatient (REF) | payer BC, MEDICARE ==
[~2023-02-24] MED LIST changes: -NS 1,000 ML IV ONE
[2023-02-24 12:53] LABS: BASO % 0.5 % (0.0-1.0); EOS # 0.1 10^3/uL (0.0-0.5); EOS % 0.6 % (0.0-3.0); HEMATOCRIT 39.5 % (36.0-47.0); HEMOGLOBIN 12.4 g/dl (12.0-15.5); LYMPH # 2.4 10^3/uL (1.5-5.0); LYMPH % 29.3 % (24.0-44.0); MEAN CORPUSCULAR HEMOGLOBIN 27.1 pg (27.0-33.0); MEAN CORPUSCULAR HGB CONC 31.4 g/dl (32.0-36.5); MEAN CORPUSCULAR VOLUME 86.4 fl (80.0-96.0); MONO # 0.7 10^3/uL (0.0-0.8); NEUTROPHILS # 4.9 10^3/uL (1.5-8.5); NEUTROPHILS % 60.2 % (36.0-66.0); PLATELET COUNT, AUTOMATED 290 10^3/uL (150-450); RED BLOOD COUNT 4.57 10^6/uL (4.00-5.40); WHITE BLOOD COUNT 8.2 10^3/uL (4.0-10.0)
[2023-02-24 13:01] LABS: IRON (FE) 36 UG/DL (50-170); PERCENT SATURATION 9.4 % (13.2-45.0); TOTAL IRON BINDING CAPACITY 384 UG/DL (250-425)
[2023-02-24 13:02] LABS: ALKALINE PHOSPHATASE 95 U/L (46-116); ALT/SGPT 16 U/L (7.0-40); AST/SGOT 28 U/L (<34); BILIRUBIN,TOTAL 0.3 MG/DL (0.3-1.2); BLOOD UREA NITROGEN 22 MG/DL (9-23); CALCIUM LEVEL 9.4 MG/DL (8.3-10.6); CARBON DIOXIDE LEVEL 26 MMOL/L (20-31); CHLORIDE LEVEL 107 MMOL/L (98-107); CREATININE FOR GFR 0.75 MG/DL (0.55-1.30); GLOMERULAR FILTRATION RATE > 60.0 (>45); GLUCOSE, FASTING 111 MG/DL (74-106); POTASSIUM SERUM 4.5 MMOL/L (3.5-5.1); SODIUM LEVEL 140 MMOL/L (136-145); TOTAL PROTEIN 7.1 G/DL (5.7-8.2)
[2023-02-24 13:23] LABS: HEMOGLOBIN A1c 5.6 % (4.0-6.0)
== END ==
LOC: M SFHCCLAY 07:53
PROVIDERS: ATTEND Nurse Practitioner Family
DX: D64.9 Anemia, unspecified (principal); E11.8 Type 2 diabetes mellitus with unspecified complications; D50.9 Iron deficiency anemia, unspecified

== ENCOUNTER → 2023-02-24 | Outpatient (REF) | payer BC, MEDICARE | LOC: M LABDRAWC 11:36 | PROVIDERS: ATTEND Orthopaedic Surgery | DX: M25.562 Pain in left knee (principal) ==

== ENCOUNTER → 2023-08-25 | Outpatient (REF) | payer BC, MEDICARE ==
[2023-08-25 12:04] LABS: BASO # 0.1 10^3/uL (0.0-0.2); BASO % 0.7 % (0.0-1.0); EOS # 0.5 10^3/uL (0.0-0.5); EOS % 5.7 % (0.0-3.0); HEMATOCRIT 43.7 % (36.0-47.0); HEMOGLOBIN 14.5 g/dl (12.0-15.5); LYMPH # 2.9 10^3/uL (1.5-5.0); LYMPH % 34.2 % (24.0-44.0); MEAN CORPUSCULAR HEMOGLOBIN 29.2 pg (27.0-33.0); MEAN CORPUSCULAR HGB CONC 33.2 g/dl (32.0-36.5); MEAN CORPUSCULAR VOLUME 88.1 fl (80.0-96.0); MONO # 0.6 10^3/uL (0.0-0.8); MONO % 7.3 % (2.0-8.0); NEUTROPHILS # 4.4 10^3/uL (1.5-8.5); PLATELET COUNT, AUTOMATED 244 10^3/uL (150-450); RED BLOOD COUNT 4.96 10^6/uL (4.00-5.40); WHITE BLOOD COUNT 8.5 10^3/uL (4.0-10.0)
[2023-08-25 12:25] LABS: ALBUMIN 3.8 G/DL (3.2-5.2); ALKALINE PHOSPHATASE 79 U/L (46-116); ALT/SGPT 12 U/L (7.0-40); AST/SGOT 19 U/L (<34); BILIRUBIN,TOTAL 0.4 MG/DL (0.3-1.2); BLOOD UREA NITROGEN 20 MG/DL (9-23); CALCIUM LEVEL 8.8 MG/DL (8.3-10.6); CARBON DIOXIDE LEVEL 28 MMOL/L (20-31); CHLORIDE LEVEL 110 MMOL/L (98-107); CHOLESTEROL LEVEL 164 MG/DL (<200); CHOLESTEROL RISK RATIO 3.09 (<5); CREATININE FOR GFR 0.81 MG/DL (0.55-1.30); FERRITIN 39.8 NG/ML (7.3-270.7); FREE T4 0.96 NG/DL (0.89-1.76); GLOMERULAR FILTRATION RATE > 60.0 (>45); GLUCOSE, FASTING 130 MG/DL (74-106); LDL CHOLESTEROL 86.6 MG/DL (<100); MAGNESIUM LEVEL 1.6 MG/DL (1.8-2.4); POTASSIUM SERUM 4.4 MMOL/L (3.5-5.1); SODIUM LEVEL 142 MMOL/L (136-145); TOTAL PROTEIN 6.6 G/DL (5.7-8.2); TRIGLYCERIDES LEVEL 122 MG/DL (<150)
[2023-08-25 12:26] LABS: HEMOGLOBIN A1c 6.9 % (4.0-6.0); THYROID STIMULATING HORMONE 2.766 uIU/ML (0.55-4.78); TOTAL 25(OH) VITAMIN D 43.2 NG/ML (20.0-100.0)
[2023-08-25 12:27] LABS: VITAMIN B12 LEVEL 499 PG/ML (211-911)
== END ==
LOC: M SFHCCLAY 07:22
PROVIDERS: ATTEND Nurse Practitioner Family
DX: E11.8 Type 2 diabetes mellitus with unspecified complications (principal); D50.9 Iron deficiency anemia, unspecified; Z98.84 Bariatric surgery status; I48.0 Paroxysmal atrial fibrillation; I10 Essential (primary) hypertension; E78.5 Hyperlipidemia, unspecified; F32.9 Major depressive disorder, single episode, unspecified; E83.42 Hypomagnesemia; Z78.0 Asymptomatic menopausal state

== ENCOUNTER → 2023-11-29 | Outpatient (CLI) | payer BC, MEDICARE | LOC: M CLY 14:50 | PROVIDERS: ATTEND Nurse Practitioner Family | DX: M25.531 Pain in right wrist (principal); M18.11 Unilateral primary osteoarthritis of first carpometacarpal joint, right hand; M19.031 Primary osteoarthritis, right wrist ==

== ENCOUNTER → 2024-08-23 | Outpatient (REF) | payer BC, MEDICARE ==
[2024-08-23 12:34] LABS: BASO # 0.1 10^3/uL (0.0-0.2); BASO % 0.8 % (0.0-1.0); EOS # 0.3 10^3/uL (0.0-0.5); EOS % 4.6 % (0.0-3.0); HEMATOCRIT 48.3 % (36.0-47.0); HEMOGLOBIN 15.7 g/dl (12.0-15.5); LYMPH # 2.2 10^3/uL (1.5-5.0); LYMPH % 29.1 % (24.0-44.0); MEAN CORPUSCULAR HEMOGLOBIN 28.6 pg (27.0-33.0); MEAN CORPUSCULAR HGB CONC 32.5 g/dl (32.0-36.5); MONO # 0.6 10^3/uL (0.0-0.8); MONO % 7.7 % (2.0-8.0); NEUTROPHILS # 4.2 10^3/uL (1.5-8.5); NEUTROPHILS % 57.3 % (36.0-66.0); PLATELET COUNT, AUTOMATED 230 10^3/uL (150-450); RED BLOOD COUNT 5.49 10^6/uL (4.00-5.40); WHITE BLOOD COUNT 7.4 10^3/uL (4.0-10.0)
[2024-08-23 12:48] LABS: HEMOGLOBIN A1c 7.4 % (4.0-6.0)
[2024-08-23 13:07] LABS: ALBUMIN 3.6 G/DL (3.2-5.2); ALKALINE PHOSPHATASE 85 U/L (35-104); ALT/SGPT 13 U/L (7.0-40); AST/SGOT 21 U/L (<34); BILIRUBIN,TOTAL 0.4 MG/DL (0.3-1.2); BLOOD UREA NITROGEN 18 MG/DL (9-23); CALCIUM LEVEL 9.1 MG/DL (8.3-10.6); CARBON DIOXIDE LEVEL 25 MMOL/L (20-31); CHLORIDE LEVEL 107 MMOL/L (98-107); CHOLESTEROL LEVEL 157 MG/DL (<200); CHOLESTEROL RISK RATIO 3.12 (<5); CREATININE FOR GFR 0.92 MG/DL (0.55-1.30); CREATININE, URINE 148.6 MG/DL; GLOMERULAR FILTRATION RATE > 60.0 (>45); GLUCOSE, FASTING 178 MG/DL (74-106); HDL CHOLESTEROL 50.3 MG/DL (>40); LDL CHOLESTEROL 78.9 MG/DL (<100); NON-HDL-C 106.7 MG/DL; POTASSIUM SERUM 4.8 MMOL/L (3.5-5.1); SODIUM LEVEL 143 MMOL/L (136-145); TOTAL PROTEIN 6.9 G/DL (5.7-8.2); TRIGLYCERIDES LEVEL 139 MG/DL (<150)
[2024-08-23 13:10] LABS: FERRITIN 56.6 NG/ML (7.3-270.7); TOTAL 25(OH) VITAMIN D 40.6 NG/ML (20.0-100.0)
[2024-08-23 13:12] LABS: VITAMIN B12 LEVEL 448 PG/ML (211-911)
== END ==
LOC: M SFHCCLAY 07:20
PROVIDERS: ATTEND Nurse Practitioner Family
DX: E11.8 Type 2 diabetes mellitus with unspecified complications (principal); D50.9 Iron deficiency anemia, unspecified; Z98.84 Bariatric surgery status; I10 Essential (primary) hypertension; E78.5 Hyperlipidemia, unspecified; F32.9 Major depressive disorder, single episode, unspecified; Z78.0 Asymptomatic menopausal state; E83.42 Hypomagnesemia; I48.0 Paroxysmal atrial fibrillation

== ENCOUNTER → 2025-03-04 | Outpatient (REF) | payer BC ==
[~2025-03-04] MED LIST changes: +ACET-1592 PO; -ACET1TAB37 PO; -PRAV40TA2 PO; +PRAV40TA85 PO
[2025-03-04 18:45] LABS: BASO # 0.1 10^3/uL (0.0-0.2); BASO % 0.6 % (0.0-1.0); EOS # 0.3 10^3/uL (0.0-0.5); EOS % 3.5 % (0.0-3.0); LYMPH # 1.8 10^3/uL (1.5-5.0); LYMPH % 20.7 % (24.0-44.0); MONO # 0.7 10^3/uL (0.0-0.8); MONO % 8.2 % (2.0-8.0); NEUTROPHILS # 5.7 10^3/uL (1.5-8.5); NEUTROPHILS % 66.3 % (36.0-66.0); PLATELET COUNT, AUTOMATED 316 10^3/uL (150-450)
[2025-03-04 19:07] LABS: TOTAL 25(OH) VITAMIN D 41.8 NG/ML (20.0-100.0)
[2025-03-04 19:08] LABS: VITAMIN B12 LEVEL 516.0 PG/ML (211-911)
[2025-03-04 19:12] LABS: ALT/SGPT 12.0 U/L (7.0-40); AST/SGOT 20.0 U/L (<34); CALCIUM LEVEL 9.4 MG/DL (8.3-10.6); CARBON DIOXIDE LEVEL 28.0 MMOL/L (20-31); CHLORIDE LEVEL 103.0 MMOL/L (98-107); CHOLESTEROL LEVEL 183.0 MG/DL (<200); CHOLESTEROL RISK RATIO 3.57 (<5); CREATININE FOR GFR 0.79 MG/DL (0.55-1.30); FREE T4 1.16 NG/DL (0.89-1.76); GLOMERULAR FILTRATION RATE 84.5 (>45); IRON (FE) 65.0 UG/DL (50-170); LDL CHOLESTEROL 86.8 MG/DL (<100); MAGNESIUM LEVEL 2.0 MG/DL (1.8-2.4); NON-HDL-C 131.8 MG/DL; PERCENT SATURATION 21.9 % (13.2-45.0); POTASSIUM SERUM 4.5 MMOL/L (3.5-5.1); SODIUM LEVEL 135.0 MMOL/L (136-145); TRIGLYCERIDES LEVEL 225.0 MG/DL (<150)
[2025-03-04 19:13] LABS: ESTIMATED AVERAGE GLUCOSE 177.0 MG/DL (60-110)
== END ==
LOC: M SFHCCLAY 10:56
PROVIDERS: ATTEND Nurse Practitioner Family
DX: E11.8 Type 2 diabetes mellitus with unspecified complications (principal); D50.9 Iron deficiency anemia, unspecified; I48.0 Paroxysmal atrial fibrillation; Z78.0 Asymptomatic menopausal state; Z98.84 Bariatric surgery status; I10 Essential (primary) hypertension; E78.5 Hyperlipidemia, unspecified; F32.9 Major depressive disorder, single episode, unspecified; E83.42 Hypomagnesemia

== ENCOUNTER → 2025-04-30 | Outpatient (REF) | payer BC | LOC: M LABDRAWC 11:48 | PROVIDERS: ATTEND Nurse Practitioner Acute Care | DX: R06.09 Other forms of dyspnea (principal) ==